=== PATIENT | female | born 1975 | race Caucasian/White ===

== ENCOUNTER 2017-03-16 15:13 | Emergency (ER) | payer OTHER ==
[~2017-03-16] VITALS: Ht 170.2 cm; Wt 114.7 kg
[2017-03-16] MEDS ORDERED: PEN-VEE K,VEET500 MG PO (18:29)
[2017-03-16] MEDS ORDERED: NAPROSYN500 MG PO (18:29)
[2017-03-16] MEDS ORDERED: ULTRAM50 MG PO (18:29)
[2017-03-16 18:43] VITALS: BP 120/81
== END 2017-03-16 18:51 | disposition home or self-care (01) ==
LOC: EME 15:13 → EXP 15:13
DX: K04.7 Periapical abscess without sinus (principal); K02.9 Dental caries, unspecified; K03.81 Cracked tooth; H92.09 Otalgia, unspecified ear; M54.2 Cervicalgia; H91.90 Unspecified hearing loss, unspecified ear
CPT/HCPCS: 99281; 99284

== ENCOUNTER 2017-04-14 18:57 | Emergency (ER) | payer OTHER ==
[~2017-04-14] VITALS: Ht 167.6 cm; Wt 109.0 kg
[~2017-04-14 18:57] MED LIST: NAPROSYN500 MG PO; PEN-VEE K,VEET500 MG PO; ULTRAM50 MG PO
[2017-04-14 19:20] VITALS: BP 130/69
[2017-04-14] MEDS ORDERED: NORCO 5/3251 TABLET PO (20:37)
[2017-04-14] MEDS ORDERED: MOTRIN600 MG PO (20:37)
== END 2017-04-14 21:38 | disposition home or self-care (01) ==
LOC: RME 18:57 → EME 18:57 → RME 21:38
DX: K08.89 Other specified disorders of teeth and supporting structures (principal); H91.90 Unspecified hearing loss, unspecified ear
CPT/HCPCS: 99281; 99284